=== PATIENT | female | born 1985 | race Caucasian/White ===

== ENCOUNTER 2021-12-16 19:44 | Emergency (ER) | payer BC, SELFPAY ==
--- NOTE | ~2021-12-16 | CT_ITS ---
EXAMINATION: CT BRAIN W/O DATE: 12/16/2021 20:46 INDICATION: Worsening headaches TECHNIQUE: Computed tomography (CT) of the head was performed without intravenous contrast. The dose- length product was 605.33 mGy-cm. Automated exposure control and iterative reconstruction technique w ere employed. COMPARISON: No prior studies for comparison. FINDINGS: Normal brain parenchymal volume for age. Normal del rosario-white differentiation. No acute intrac ranial hemorrhage, infarction, mass or mass effect. No ventriculomegaly or midline shift. Midline sagittal images demonstrate a normal corpus callosum, c raniovertebral junction and sella turcica. Basilar cisterns are patent. Prominent cisterna magna. Paranasal sinuses and mastoids are pneumatized. No depressed skull fractures. IMPRESSION: 1. No acute intracranial abnormality. Reviewed, dictated and finalized at location A.
[2021-12-16 19:46] VITALS: BP 145/92; PULSE 105; RESP 14; TEMP 36.6; O2SAT 98
--- NOTE | 2021-12-16 20:20 | ED.HA ---
HPI - Headache General Chief Complaint: Headache Stated Complaint: headache x 2 months Time Seen by Provider: 12/16/21 20:00 Source: patient Mode of arrival: ambulatory Limitations: no limitations History of Present Illness HPI Narrative: This is a 36-year-old female that presents to the emergency department for headaches worsening over the last month. Reports longstanding history of headaches. Reports they have gotten worse over the last month. She has been taking ibuprofen with little relief. She has never seen a neurologist for her headaches. Denies fever, vomiting, or focal numbness, or weakness. Related Data Allergies Allergy/AdvReac Type Severity Reaction Status Date / Time No Known Allergies Allergy Unknown Verified 04/08/08 15:51 Review of Systems Review of Systems: CONSTITUTIONAL: Denies fever EYES: Denies visual changes GASTROINTESTINAL: Denies vomiting NEUROLOGIC: Reports headache. Denies numbness, or weakness. All systems reviewed & are unremarkable except as noted in HPI and below PMFSH Past Medical History Medical History (Updated 12/16/21 @ 21:46 by Beba Glasgow PA-C) No active medical problems Social History Social History (Updated 12/16/21 @ 20:23 by Beba Glasgow PA-C) Smoking status: Never smoker Substance use: never Exam Narrative: GENERAL: Well-appearing, well-nourished, and in no acute distress. HEAD: Normocephalic, atraumatic. EYES: PERRLA and EOMI. ENT: Nares clear, no rhinorrhea or epistaxis. Mucous membranes moist. Oropharynx without tonsillar hypertrophy exudate or other lesions. Bilateral TMs pearly del rosario non-bulging NECK: Supple. No adenopathy or masses. CHEST: Clear to auscultation. No respiratory distress. No wheezes rales or rhonchi HEART: Regular rate and rhythm. No murmur heard. Normal peripheral pulses. EXTREMITIES: Normal range of motion. No edema. Strength equal in bilateral upper and lower extremities (5/5) SKIN: Warm, dry, no rash. NEURO: No focal deficits. Alert and oriented x3. Cranial nerves II through XII grossly intact PSYCH: Normal mood and affect Course Vital Signs Vital signs: Vital Signs Temperature 97.9 F 12/16/21 19:46 Pulse Rate 105 H 12/16/21 19:46 Respiratory Rate 14 12/16/21 19:46 Blood Pressure 145/92 H 12/16/21 19:46 Pulse Oximetry 98 12/16/21 19:46 Oxygen Delivery Room Air 12/16/21 19:46 Temperature 97.9 F 12/16/21 19:46 Pulse Rate 105 H 12/16/21 19:46 Respiratory Rate 14 12/16/21 19:46 Blood Pressure 145/92 H 12/16/21 19:46 Pulse Oximetry 98 12/16/21 19:46 Oxygen Delivery Room Air 12/16/21 19:46 MDM - Headache MDM Narrative Medical decision making narrative: Patient presents to the ER for worsening headaches noted over the last month. She is afebrile and nontoxic appearing. She is neurologically intact. CT scan of the brain without concerning findings. Patient reports relief with migraine cocktail. She is stable and felt appropriate for further outpatient evaluation. She was given warnings to return to the ER Imaging Data Radiologist's impression: ITS Impressions Head CT 12/16/21 20:57 IMPRESSION: 1. No acute intracranial abnormality. Critical Care Time Critical Care Time Critical Care Time: No Discharge Plan Discharge Clinical Impression: Headache Qualifiers: Headache type: unspecified Headache chronicity pattern: chronic headache Intractability: not intractable Qualified Code(s): R51.9 - Headache, unspecified Patient Disposition: Home, Self-Care Condition: Stable Instructions: Acute Headache (ED) Additional Instructions: Return to the ER if you experience fever, stiff neck, vomiting, sudden onset numbness or weakness, or any other symptoms that are concerning to you Rest. Remain well hydrated. Over the counter pain medication as needed Follow up with neurology Follow-up/Referrals: Chucho Mujica MD [Physician] - 1 Week PHYSICIAN,EYELET OPERATOR
[2021-12-16] MEDS: SODIUM CHLORIDE 0.9% IV 1,000 ML 999 ML IV CONT (20:31)
[2021-12-16] MEDS: METOCLOPRAMIDE HCL INJ 10 MG/2 ML VIAL IV PUSH (20:33)
[2021-12-16] MEDS: diphenhydrAMINE HCl INJ 50 MG/ML VIAL 25 MG IV PUSH (20:35)
[2021-12-16 22:01] VITALS: BP 145/67; PULSE 88; RESP 18; O2SAT 98
== END 2021-12-16 22:02 | disposition home or self-care (01) ==
PROVIDERS: Emergency Provider Emergency Medicine
DX: R51.9 Headache, unspecified (principal)
CPT/HCPCS: 70450; 96361; 96374; 96375; 99284; J0131; J1200; J2765; J7030

== ENCOUNTER 2022-02-16 01:08 | Emergency (ER) | payer OTHER, BC, SELFPAY ==
[2022-02-16 01:10] VITALS: BP 160/97; PULSE 94; RESP 14; TEMP 36.2; O2SAT 100
[2022-02-16 01:32] VITALS: O2SAT 100
[2022-02-16 02:57] LABS: SARS-CoV-2 RNA PCR Positive
--- NOTE | 2022-02-16 03:54 | ED.GENADULT ---
HPI - General Adult General Chief complaint: Upper Respiratory Infection Stated complaint: shortness of breath with cough and congestion Time Seen by Provider: 02/16/22 02:04 History of Present Illness HPI narrative: This is a 36-year-old woman presenting to ED with chief complaint of URI symptoms x4 days. Symptoms include cough, sneezing, runny nose. Patient denies nausea vomiting or diarrhea. She denies chest pain, shortness of breath, abdominal pain, GI or symptoms. Patient is vaccinated against COVID. Patient has has sick contacts at home. Related Data Allergies Allergy/AdvReac Type Severity Reaction Status Date / Time No Known Allergies Allergy Unknown Verified 02/16/22 01:39 Review of Systems Review of Systems: CONSTITUTIONAL: Denies night sweats. EYES: No eye pain ENT: Denies rhinorrhea CARDIOVASCULAR: Denies palpitations RESPIRATORY: Denies hemoptysis GASTROINTESTINAL: Denies hematemesis GENITOURINARY: Denies hematuria. SKIN: Denies rash MUSCULOSKELETAL: Denies myalgia. NEUROLOGIC: Denies weakness. PSYCHIATRIC: Denies delusions PMFSH Past Medical History Medical History No active medical problems Social History Social History Smoking status: Never smoker Substance use: never Exam Narrative: APPEARANCE: No apparent distress. Head atraumatic. EYES: PERRLA/EOMI, NOSE: Normal no drainage NECK: Supple, Trachea midline RESPIRATORY: CTAB, No increased work of breathing. CARDIOVASCULAR: S1S2 appreciated ABDOMINAL: Soft, nontender, nondistended, MUSCULOSKELETAl: No obvious deformities NEURO: Alert. Moving 4/4 extremities SKIN:: Warm, dry. Normal color PSYCHIATRIC: Normal affect Course Vital Signs Vital signs: Vital Signs Temperature 97.2 F L 02/16/22 01:10 Pulse Rate 94 02/16/22 01:10 Respiratory Rate 14 02/16/22 01:10 Blood Pressure 160/97 H 02/16/22 01:10 Pulse Oximetry 100 02/16/22 01:10 Oxygen Delivery Room Air 02/16/22 01:10 Temperature 97.2 F L 02/16/22 01:10 Pulse Rate 94 02/16/22 01:10 Respiratory Rate 14 02/16/22 01:10 Blood Pressure 160/97 H 02/16/22 01:10 Pulse Oximetry 100 02/16/22 01:32 Oxygen Delivery Room Air 02/16/22 01:32 Medical Decision Making MDM Narrative Medical decision making narrative: Patient presents to the ED with URI symptoms x4 days. She is positive for COVID. She is young without comorbidities and is vaccinated. She is considered low risk. She is well appearing with stable vital signs now requiring supplemental oxygenShe will be discharged home with prescriptions to self isolate until asymptomatic. Vital Signs Vital Signs: Vital Signs Temperature 97.2 F L 02/16/22 01:10 Pulse Rate 94 02/16/22 01:10 Respiratory Rate 14 02/16/22 01:10 Blood Pressure 160/97 H 02/16/22 01:10 Pulse Oximetry 100 02/16/22 01:10 Oxygen Delivery Room Air 02/16/22 01:10 Temperature 97.2 F L 02/16/22 01:10 Pulse Rate 94 02/16/22 01:10 Respiratory Rate 14 02/16/22 01:10 Blood Pressure 160/97 H 02/16/22 01:10 Pulse Oximetry 100 02/16/22 01:32 Oxygen Delivery Room Air 02/16/22 01:32 Lab Data Labs: Lab Results 02/16/22 Range/Units 02:14 SARS-CoV-2 RNA (RT-PCR) Positive A Discharge Plan Discharge Clinical Impression: COVID, Acute viral syndrome Patient Disposition: Home, Self-Care Condition: Stable Instructions: Antibiotic Form, COVID-19 (Coronavirus Disease 2019) (ED) Additional Instructions: Please self isolate until you are asymptomatic. Please return emergency department if you develop shortness of breath earlier condition is worsening please follow the primary care physician in 3-5 days. He can take Motrin, Tylenol and Robitussin for symptom control. Prescriptions: New ibuprofen 800 mg tablet 800 mg PO TID PRN (Reason: pain)
== END 2022-02-16 04:10 | disposition home or self-care (01) ==
PROVIDERS: Physician Assistant; Emergency Provider Emergency Medicine
DX: U07.1 COVID-19 (principal)
CPT/HCPCS: 99283; C9803; U0003; U0005

== ENCOUNTER 2022-04-30 00:11 | Emergency (ER) | payer OTHER, BC, SELFPAY ==
[2022-04-30 00:15] VITALS: BP 142/98; PULSE 104; RESP 18; TEMP 36.1; O2SAT 99
--- NOTE | 2022-04-30 02:21 | ED.GENADULT ---
HPI - General Adult General Chief complaint: Unspecified Stated complaint: blue fingers Time Seen by Provider: 04/30/22 01:23 Source: patient Mode of arrival: ambulatory Limitations: no limitations History of Present Illness HPI narrative: Patient is a 36 y/o female who presents to the ED with c/o discoloration to fingers. Patient reports having intermittent blue discoloration to her fingers bilaterally for the past several weeks. She states it seems to be worse at the end of the day. She denies any temperature changes, pain, numbness, tingling, swelling, white discoloration, other areas of discoloration, chest pain, shortness of breath. No injury. Related Data Allergies Allergy/AdvReac Type Severity Reaction Status Date / Time No Known Allergies Allergy Unknown Verified 02/16/22 01:39 Review of Systems Review of Systems: CONSTITUTIONAL: Denies fever, chills, or sweats. CARDIAC: Denies chest pain, BLE pain or edema. RESPIRATORY: Denies dyspnea. SKIN: Reports blue discoloration to fingers. Denies white discoloration. MUSCULOSKELETAL: Denies pain to fingers. NEUROLOGIC: Denies tingling, numbness, or weakness. All systems reviewed & are unremarkable except as noted in HPI and below PMFSH Past Medical History Medical History No active medical problems Surgical History Surgical History (Updated 04/30/22 @ 03:01 by Juli Alvarado PA-C) No pertinent past surgical history Social History Social History Smoking status: Never smoker Substance use: never Exam Narrative: GENERAL: Well appearing, obese, non-toxic, in no acute distress. HEAD: Normocephalic, atraumatic. NECK: Supple. No adenopathy, no masses. RESPIRATORY: Airway patent, respirations nonlabored. Clear to auscultation bilaterally, no rales, rhonchi, wheezing. CARDIOVASCULAR: Regular rate and rhythm without murmurs, rubs, or gallops. Radial pulses 2+ and equal bilaterally. MUSCULOSKELETAL: Moves all extremities. Strength/ROM intact without gross deformities. SKIN: Warm, dry. No rashes. No temperature changes, cold or hot, noted to the fingers. Very slight blue discoloration noted to hands at certain angles. Good capillary refill to all fingers, equal on both hands. Portable pulse oximeter utilized on all fingers, no oxygenation less than 94%. Sensation intact to all fingers. No blue discoloration to toes bilaterally. NEURO: A&O X3. Speech clear. Cranial nerves II-XII grossly intact. Steady gait. No ataxic movements. PSYCHIATRIC: Appropriate mood and affect. Normal interaction. Course Vital Signs Vital signs: Vital Signs Temperature 97.0 F L 04/30/22 00:15 Pulse Rate 104 H 04/30/22 00:15 Respiratory Rate 18 04/30/22 00:15 Blood Pressure 142/98 H 04/30/22 00:15 Pulse Oximetry 99 04/30/22 00:15 Oxygen Delivery Room Air 04/30/22 00:15 Temperature 97.0 F L 04/30/22 00:15 Pulse Rate 104 H 04/30/22 00:15 Respiratory Rate 18 04/30/22 00:15 Blood Pressure 142/98 H 04/30/22 00:15 Pulse Oximetry 99 04/30/22 00:15 Oxygen Delivery Room Air 04/30/22 00:15 Medical Decision Making MDM Narrative Medical decision making narrative: Patient presented to ED with report of several week history of intermittent blue discoloration to fingers. Patient denies any other symptoms associated, no pain, numbness, tingling, swelling. I did appreciate a slight blue tint to patient's hands when examined from different angles. I used a alcohol prep pad and was able to remove some sort of blue dye/ink with the alcohol pad. I do believe this may be related to patient's new pair of blue jeans that she presented to the ED in. At times, I could still appreciate a slight blue tint, could be very mild Raynaud's, but again no other sx's, no precipitating factors. Patient has good capillary refill in all fingers. No temperatu
== END 2022-04-30 03:04 | disposition home or self-care (01) ==
PROVIDERS: Emergency Provider Physician Assistant
DX: L81.9 Disorder of pigmentation, unspecified (principal)
CPT/HCPCS: 99281

== ENCOUNTER 2022-08-04 14:12 | Emergency (ER) | payer OTHER, BC, SELFPAY ==
--- NOTE | ~2022-08-04 | XR_ITS ---
EXAMINATION: XR ankle RT min 3V INDICATION: Right ankle pain TECHNIQUE: Four views of the right ankle are obtained. COMPARISON: 11/25/2011 FINDINGS: There are changes of plate and screw fixation of the distal fibula as well as distal tibial /fibular fusion. Bone alignment is normal. No acute fracture is identified. There is mild osteoarthri tis. IMPRESSION: 1. Postsurgical changes and mild osteoarthritis without acute osseous abnormality identified. Reviewed, dictated and finalized at location F. BOND AGENT IMPRESSION: 1. Postsurgical changes and mild osteoarthritis without acute osseous abnormali ty identified.
[2022-08-04 14:45] VITALS: BP 128/75; PULSE 92; RESP 16; TEMP 36.3; O2SAT 100
--- NOTE | 2022-08-04 16:11 | ED.LOWEXIN ---
HPI - Extremity Injury (Lower) General Chief Complaint: Extremity Injury, Lower Stated Complaint: R ANKLE INJURY Time Seen by Provider: 08/04/22 15:58 Source: patient Mode of arrival: ambulatory Limitations: no limitations History of Present Illness HPI Narrative: 37-year-old female presents today status post fall about 1 week ago. Patient with concerns of continued right ankle pain. Patient states pain is currently tolerable. Patient states pain yesterday was not tolerable and Tylenol did relieve it. Patient has a history of having surgery to the right ankle previously. Patient is able to ambulate but states that the pain is most when she does put a large amount of pressure on that right ankle. Small amount of bruising noted to right ankle but currently is light green/yellow in color. Unable to tell if any swelling is present. Patient states that she does not think that the ankle is swollen. MD complaint: ankle injury (Right ankle) Related Data Allergies Allergy/AdvReac Type Severity Reaction Status Date / Time No Known Allergies Allergy Unknown Verified 02/16/22 01:39 Review of Systems Review of Systems: CONSTITUTIONAL: Denies fever, chills, or sweats. EYES: Denies visual changes, redness, or discharge. ENT: Denies rhinorrhea, congestion, sore throat, or otalgia. CARDIOVASCULAR: Denies chest pain, palpitations, or edema. RESPIRATORY: Denies cough or dyspnea. GASTROINTESTINAL: Denies abdominal pain, nausea, vomiting, or diarrhea. GENITOURINARY: Denies dysuria or hematuria. SKIN: Denies rash or itching. MUSCULOSKELETAL: Right ankle pain status post fall. Denies back pain or myalgia. NEUROLOGIC: Denies headache, numbness, dizziness, or weakness. PSYCHIATRIC: Denies anxiety or depression. PMFSH Past Medical History Medical History No active medical problems Surgical History Surgical History (Updated 08/04/22 @ 16:16 by Sofia Humphreys APRN) History of ankle surgery No pertinent past surgical history Social History Social History Smoking status: Never smoker Substance use: never Exam Narrative: GENERAL: Well-appearing, well-nourished, and in no acute distress. HEAD: Normocephalic, atraumatic. EYES: PERRLA and EOMI. CHEST: Clear to auscultation. No respiratory distress. No wheezes rales or rhonchi HEART: Regular rate and rhythm. No murmur heard. Normal peripheral pulses. EXTREMITIES: Normal range of motion. No edema. Yellow bruising noted to right ankle. No tenderness on palpation. Full range of motion noted. SKIN: Warm, dry, no rash. NEURO: No focal deficits. Alert and oriented x3. PSYCH: Normal mood and affect. Course Vital Signs Vital signs: Vital Signs Temperature 97.4 F L 08/04/22 14:45 Pulse Rate 92 08/04/22 14:45 Respiratory Rate 16 08/04/22 14:45 Blood Pressure 128/75 08/04/22 14:45 Pulse Oximetry 100 08/04/22 14:45 Temperature 97.4 F L 08/04/22 14:45 Pulse Rate 92 08/04/22 14:45 Respiratory Rate 16 08/04/22 14:45 Blood Pressure 128/75 08/04/22 14:45 Pulse Oximetry 100 08/04/22 14:45 MDM - Extremity Injury (Lower) MDM Narrative Medical decision making narrative: 37-year-old female HPI as noted. Differentials noted as below. X-ray negative for acute fracture. Will treat for ankle sprain. Differential Diagnosis Differential diagnosis: Likely ankle sprain and strain, fracture of femur and ankle fracture Imaging Data Radiologist's impression: Impressions Ankle X-Ray 08/04/22 15:47 IMPRESSION: 1. Postsurgical changes and mild osteoarthritis without acute osseous abnormality identified. Discharge Plan Discharge Clinical Impression: Ankle sprain and strain, Acute right ankle pain Patient Disposition: Home, Self-Care Condition: Stable Instructions: Antibiotic Form Additional Instructions: Sagar wrap as n
== END 2022-08-04 16:43 | disposition home or self-care (01) ==
LOC: ANHED 16:35
PROVIDERS: Emergency Provider Nurse Practitioner Family
DX: S93.401A Sprain of unspecified ligament of right ankle, initial encounter (principal); X58.XXXA Exposure to other specified factors, initial encounter
CPT/HCPCS: 73610; 99283

== ENCOUNTER 2023-11-18 17:13 | Emergency (ER) | payer OTHER, SELFPAY ==
--- NOTE | ~2023-11-18 | XR_ITS ---
XR knee LT min 4V Ordering provider: Beba Glasgow PA-C History: . left knee pain x 2 weeks, no trauma . Comparison: None. FINDINGS: BONES: No acute fracture or dislocation. JOINT SPACES: Normal. SOFT TISSUES: Normal. IMPRESSION: No acute osseous abnormality left knee. Consider MRI knee if there is concern for soft tissue internal derangement. Reviewed, dictated and finalized at location A.
[2023-11-18 17:15] VITALS: BP 137/98; PULSE 97; RESP 20; TEMP 36.9; O2SAT 99
--- NOTE | 2023-11-18 18:59 | ED.EXTPRO ---
HPI - Extremity Problem General Chief complaint: Extremity Problem,Nontraumatic Stated complaint: L knee pain Time Seen by Provider: 11/18/23 18:03 Source: patient Mode of arrival: ambulatory Limitations: no limitations History of Present Illness HPI Narrative: This is a 38-year-old female that presents to the emergency department for left knee pain. Ongoing over the last couple of weeks. Reports the pain is constant in nature. Worse with weight-bearing. She has been taking ibuprofen for pain. No known injuries. Reports the pain has been radiating into her calf and lower leg. Denies fevers, erythema, edema, decreased range of motion, or numbness. Related Data Allergies Allergy/AdvReac Type Severity Reaction Status Date / Time No Known Allergies Allergy Unknown Verified 11/18/23 18:02 Review of Systems Review of Systems: CONSTITUTIONAL: Denies fever SKIN: Denies rash MUSCULOSKELETAL: Reports joint pain, and myalgia. NEUROLOGIC: Denies numbness, or weakness. All systems reviewed & are unremarkable except as noted in HPI and below PMFSH Past Medical History Medical History No active medical problems Surgical History Surgical History (Updated 08/04/22 @ 16:16 by Sofia Humphreys APRN) History of ankle surgery No pertinent past surgical history Social History Social History Smoking status: Never smoker Substance use: never Exam Narrative: GENERAL: Well-appearing, well-nourished, and in no acute distress. HEAD: Normocephalic, atraumatic. EYES: EOMI CHEST: No respiratory distress. HEART: Regular rate EXTREMITIES: Normal range of motion. No edema or erythema. Normal DP pulse. Normal sensation SKIN: Warm, dry, no rash. NEURO: No focal deficits. Alert and oriented x3. PSYCH: Normal mood and affect Course Course Emergency Course: Patient updated on her workup and agrees with plan of care Vital Signs Vital signs: Vital Signs Temperature 98.5 F 11/18/23 17:15 Pulse Rate 97 11/18/23 17:15 Respiratory Rate 20 11/18/23 17:15 Blood Pressure 137/98 H 11/18/23 17:15 Pulse Oximetry 99 11/18/23 17:15 Oxygen Delivery Room Air 11/18/23 17:15 Temperature 98.5 F 11/18/23 17:15 Pulse Rate 82 11/18/23 20:00 Respiratory Rate 17 11/18/23 20:00 Blood Pressure 128/92 H 11/18/23 20:00 Pulse Oximetry 100 11/18/23 20:00 Oxygen Delivery Room Air 11/18/23 17:15 Procedures Orthopedic Splinting/Casting Injury #1: Splinting/Casting Date: 11/18/23 Splinting/Casting Time: 20:13 Side: left Lower Extremity Injury Location: knee Lower Extremity Immobilizer: Sagar wrap Pre-Procedure Neuro Vascular Exam: normal Post-Procedure Neuro Vascular Exam: normal Other Orthopedic Equipment: crutches MDM - Extremity (Nontraumatic) MDM Narrative Medical decision making narrative: Patient presents to the emergency department for left knee and lower extremity pain. Ongoing over the last week. No known injuries. She is neurovascularly intact. No notable erythema or edema of the knee. She is afebrile and nontoxic appearing. Her vitals are stable. CBC without leukocytosis. Metabolic panel without concerning findings. D-dimer is not elevated. Left knee x-ray is without acute osseous abnormalities. Patient updated on her workup. Placed in an sagar wrap and given crutches. She will be given follow-up with Orthopedics. She was given warnings to return to the ER Differential Diagnosis Differential diagnosis: Likely deep vein thrombosis of lower extremity and other (internal derangement of knee) Lab Data Attestation: I reviewed the patient's lab results. 11/18/23 19:21 11/18/23 19:21 Labs: Lab Results 11/18/23 Range/Units 19:21 WBC 8.6 (4.5-10.0) K/mm3 RBC 4.41 (4.2-5.4) M/mm3 Hgb
--- NOTE | 2023-11-18 19:07 | PC.NURSE ---
Assumed care of patient at this time.
[2023-11-18] MEDS: KETOROLAC 30 MG/ML VIAL (*BKC) IM (19:17)
[2023-11-18 19:27] LABS: Basophils Percent Auto 0.3 % (0.2-1.2); Eosinophils Absolute Auto 0.1 K/mm3 (0-0.3); Eosinophils Percent Auto 1.3 % (0-4.4); Hematocrit 36.8 % (37.0-47.0); Hemoglobin 11.7 g/dL (12.0-15.0); Immature Granulocyte Absolute 0.03 K/mm3 (0.00-0.031); Immature Granulocyte Percent A 0.3 % (0-0.5); Lymphocytes Absolute Auto 1.99 K/mm3 (0.9-3.2); Lymphocytes Percent Auto 23.1 % (18.3-44.2); Mean Corpuscular HGB Conc 31.8 g/dl (32-36); Mean Corpuscular Hemoglobin 26.5 pg (26-34); Mean Corpuscular Volume 83.4 fl (80-100); Monocytes Absolute Auto 0.5 K/mm3 (0.1-0.6); Monocytes Percent Auto 6.1 % (2.6-8.5); Neutrophils Absolute Auto 5.9 K/mm3 (1.3-6.7); Neutrophils Percent Auto 68.9 % (45.5-73.1); Platelet Count Result 256 k/mm3 (150-375); Red Blood Count 4.41 M/mm3 (4.2-5.4); Red Cell Distribution Width 13.6 % (11.5-14.5); White Blood Count 8.6 K/mm3 (4.5-10.0)
[2023-11-18 19:41] LABS: Anion Gap 9 mmol/L (4-12); Blood Urea Nitrogen 13 mg/dL (7-17); Carbon Dioxide 23 mmol/L (22-30); Chloride 105 mmol/L (98-107); Estimated CRCL calculation 113 ml/min; Estimated Glomerular Filt Rate > 60; Glucose 95 mg/dL (65-110); Sodium 137 mmol/L (137-145)
[2023-11-18 19:44] LABS: Prothrombin Time 13.5 Seconds (11.1-14.7)
[2023-11-18 19:45] LABS: Partial Thromboplastin Time 26.9 Seconds (22.3-36.8)
[2023-11-18 19:50] LABS: D Dimer 0.35 ug/mL (<0.48)
[2023-11-18 20:00] VITALS: BP 128/92; PULSE 82; RESP 17; O2SAT 100
== END 2023-11-18 20:23 | disposition home or self-care (01) ==
PROVIDERS: Emergency Provider Physician Assistant
DX: M25.562 Pain in left knee (principal)
CPT/HCPCS: 36415; 73564; 80048; 85025; 85380; 85610; 85730; 96372; 99283; J1885

== ENCOUNTER 2024-02-09 08:43 | Outpatient (CLI) | payer OTHER, SELFPAY ==
--- NOTE | ~2024-02-09 | MR_ITS ---
MRI of the left knee Clinical history: Pain Technique: Coronal proton density and proton density-weighted images, sagittal proton-density and T2 fat-sat images, and axial proton-density fat-saturated images were acquired. Findings: There is mucoid degenerative change of the ACL, which is hyperintense, but otherwise intact . Posterior cruciate ligament is intact. Medial collateral ligament and the lateral collateral ligame nt complex are intact. Popliteus tendon is intact. Medial and lateral menisci are intact, without evidence of tear. Articular cartilage is well preserved throughout the knee. Bone marrow signals are unremarkable. Extensor mechanism is intact. No joint effusion or Mckeon's cyst. Impression: Mucoid degenerative change of the ACL, otherwise no significant abnormality seen. Reviewed, dictated and finalized at location . Impression: Mucoid degenerative change of the ACL, otherwise no significant abnormality see n.
== END 2024-02-09 08:44 | disposition home or self-care (01) ==
PROVIDERS: PCP Nurse Practitioner Family; Visit Provider Nurse Practitioner Family
DX: M25.562 Pain in left knee (principal)
CPT/HCPCS: 73721

== ENCOUNTER 2024-04-03 09:49 | Emergency (ER) | payer OTHER, SELFPAY ==
[2024-04-03 09:51] VITALS: BP 133/93; PULSE 90; RESP 18; TEMP 36.4; O2SAT 98
--- NOTE | 2024-04-03 09:59 | PC.NURSE ---
Strep and COVID/FLU/RSV swab sent to lab.
[2024-04-03 10:27] LABS: Strep Group A RT-PCR NOT DETECTED (Negative)
[2024-04-03 10:38] LABS: Influenza A QL RT-PCR Negative (Negative); Influenza B QL RT-PCR Negative (Negative); RSV RNA, RT-PCR Negative (Negative); SARS-CoV-2 RNA PCR Negative (Negative)
--- NOTE | 2024-04-03 11:51 | ED.URI ---
HPI - URI/Sore Throat General Chief Complaint: Upper Respiratory Infection Stated Complaint: headache, vomiting Time Seen by Provider: 04/03/24 11:50 History of Present Illness HPI Narrative: Patient is a 38-year-old female who presents to the ER with headache, sore throat, nausea vomiting. She reports her symptoms started on Tuesday night. Patient recently had contact with her sister who has been ill with a viral infection. Patient has no medical history pertinent to this ER visit. Related Data Allergies Allergy/AdvReac Type Severity Reaction Status Date / Time No Known Allergies Allergy Unknown Verified 04/03/24 09:53 Review of Systems Review of Systems: All systems reviewed & are unremarkable except as noted in HPI and below PMFSH Past Medical History Medical History Anemia Anxiety Depression Lateral meniscus tear Left knee pain Patella-femoral syndrome Surgical History Surgical History History of ankle surgery 2008 - Dr. Oden Family History Family History Unknown Diabetes mellitus Hypertension Social History Social History Smoking status: Never smoker Substance use: never Exam Narrative: GENERAL: Well appearing, well-nourished, non-toxic, in no acute distress. HEAD: Normocephalic, atraumatic. NECK: Supple. No adenopathy, no masses. RESPIRATORY: Airway patent, respirations nonlabored. Clear to auscultation bilaterally, no rales, rhonchi, wheezing. CARDIOVASCULAR: Regular rate and rhythm without murmurs, rubs, or gallops. Peripheral pulses 2+ and equal bilaterally. ABDOMINAL: Soft, nontender, nondistended, no hepatosplenomegaly. Normoactive BS. MUSCULOSKELETAL: Moves all extremities. Strength/ROM intact without gross deformities. SKIN: Warm, dry, normal color. No rashes. NEURO: A&O X3. Speech clear. Cranial nerves II-XII grossly intact. Steady gait. No ataxic movements. PSYCHIATRIC: Appropriate mood and affect. Normal interaction. Course Vital Signs Vital signs: Vital Signs Temperature 36.4 C L 04/03/24 09:51 Pulse Rate 90 04/03/24 09:51 Respiratory Rate 18 04/03/24 09:51 Blood Pressure 133/93 H 04/03/24 09:51 Pulse Oximetry 98 04/03/24 09:51 Oxygen Delivery Room Air 04/03/24 09:51 Temperature 36.4 C L 04/03/24 09:51 Pulse Rate 90 04/03/24 09:51 Respiratory Rate 18 04/03/24 09:51 Blood Pressure 133/93 H 04/03/24 09:51 Pulse Oximetry 98 04/03/24 09:51 Oxygen Delivery Room Air 04/03/24 09:51 MDM - URI/Sore Throat MDM Narrative Medical decision making narrative: Patient's COVID/RSV / strep swabs were all negative. Results shared with patient. Advised to rest, push fluids, return to the ER with any worsening symptoms. Patient verbalizes agreement with plan. Differential Diagnosis Differential diagnosis: Likely upper respiratory infection, viral infection, bronchitis and pharyngitis Lab Data Attestation: I reviewed the patient's lab results. Labs: Lab Results 04/03/24 04/03/24 Range/Units 09:57 09:58 Influenza A (RT-PCR) Negative (Negative) Influenza B (RT-PCR) Negative (Negative) RSV (RT-PCR) Negative (Negative) SARS-CoV-2 RNA (RT-PCR) Negative (Negative) Group A Strep (PCR) Not detected (Negative) Discharge Plan Discharge Clinical Impression: Upper respiratory infection, viral Patient Disposition: Home, Self-Care Condition: Stable Instructions: Antibiotic Form, Viral Syndrome (ED) Additional Instructions: Please return to ER with worsening symptoms. He may take Tylenol and or ibuprofen to treat symptoms. Please follow-up with your primary care provider. Try to rest and push fluids over the next couple of days. Prescriptions: No Action ibuprofen 800 mg tablet 800 mg PO TID PRN (Reason: pain) 7 Days Qty: 21 0RF acetaminophen 500 mg tablet 1,000 mg PO TID PRN (Reason: alexandre) 7 Days Qty: 42 0RF cyclobenzaprine 10 mg tablet 10 mg PO TID PRN (Reason: muscle spasm) Qty: 14 0RF meloxicam 15 mg tablet 15 mg PO DAILY Qty: 30 0RF Follow-up/Referrals: PHYSICIAN NOT ON STAFF,NONSTAFF [Primary Care Provider] - Stand Alone Forms: Work/School Release IP Time of Disposition: 11:54
[2024-04-03 12:15] VITALS: BP 125/85; PULSE 92; RESP 15; TEMP 36.4; O2SAT 99
[2024-04-03 12:21] VITALS: O2SAT 99
== END 2024-04-03 12:23 | disposition home or self-care (01) ==
LOC: ANHED 11:57
PROVIDERS: Family Medicine; Emergency Provider Registered Nurse
DX: J06.9 Acute upper respiratory infection, unspecified (principal); Z20.822 Contact with and (suspected) exposure to COVID-19; Z86.2 Personal history of diseases of the blood and blood-forming organs and certain disorders involving the immune mechanism
CPT/HCPCS: 87637; 87651; 99283

== ENCOUNTER 2024-07-06 13:10 | Emergency (ER) | payer MEDICAID, SELFPAY ==
--- NOTE | ~2024-07-06 | XR_ITS ---
EXAMINATION: XR knee LT min 4V DATE: 07/06/2024 15:39 INDICATION: Fall. Left knee pain. TECHNIQUE: 4 views of left knee were obtained. COMPARISON: Left knee radiograph 11/18/2023 FINDINGS: Alignment is normal. No fracture. There is mild osteoarthritis of medial and patellofemoral compartments. No knee joint effusion. IMPRESSION: 1. Mild left knee osteoarthritis. Reviewed, dictated and finalized at location A. [facility]
[2024-07-06 13:11] VITALS: BP 148/95; PULSE 98; RESP 16; TEMP 36.6; O2SAT 100
--- OUTSIDE RECORDS SUMMARY | 2024-07-06 13:12 | XMS_ITS | Encounter Summary ---
Author Organization [facility] Address [address] [place] [address] Care Team Providers Care Handbag Framer Name Role Phone Patricia Anderson MD Primary Care Provider [phone] Encounter Details Date Type Department Care Team (Late st Contact Info) Description 07/04/2024 External Device Data [facility] Provider, Abstract NO ADDRESS ON FILE Social History Tobacco Use Types Packs/Day Years Used Date Smoking Tobacco: Never Smokeless Tobacco: Never Alcohol Use Standard Drinks/Week Comments Yes 0 (1 standard drink = 0.6 oz pur e alcohol) a couple of drinks a month Comments No Sex and Gender Information Value Date Recorded Sex Assigned at Not on file Legal Sex Female 11:54 AM CDT Gender Identity Not on file Sexual Orientation Not on file documented as of this encounter Plan of Treatment Not on file documented as of this encounter Visit Diagnoses Not on filedocumented in this encounter Additional Health Concerns Assessment Noted Time PHQ-9 Depression Total Score: 5 03/27/20 24 1:00 PM CDT documented as of this encounter Care Teams Handbag Framer Relationship Specialty Start Date End Date Patricia Anderson MD [address] [place] [phone] PCP - General Internal Medicine 12/27/23 documented as of this encounter
--- OUTSIDE RECORDS SUMMARY | 2024-07-06 13:12 | XMS_ITS | Continuity of Care Document ---
Author Organization [facility] Address [address] [place] [address] [place] [address] Phone Care Team Providers Care Inspector Weights And Measures Name Role Phone Blayne Ruby MD Unavailable Unavailable Advance Directives Directive Yes / No Effective Date File Name No Information Encounters Encounter Description Practice Location Reason(s) For Visit Diagnoses Date Provider Providers Copied on Encounter [facility], [address] [employer] [facility] [place], [id number], [place] tel:[phone] [facility] No Information Tung Cisneros. [address] [facility] [place], [id number], [place]. tel:[phone] Family History Family Member Type Diagnosis Age At Onset No Information Payers Payer name Insurance type Covered republican ID Authoriza tion(s) No Information Social History Type Description Quantity Date Captured Comments Sex Female Smoking Status No Information Chief Complaint And Reason For Visit No Information Plan Of Treatment Date Type Action Status No Information History Of Present Illness Encounter Date Complaint History Of Prese nt Illness No Information Instructions Date Instruction Additional Infor mation No Information Assessments Type Assessment Date No Information
--- OUTSIDE RECORDS SUMMARY | 2024-07-06 13:12 | XMS_ITS | Clinical Summary ---
Author Organization [facility] [place] Address [address] [place] [phone] Care Team Providers Care Clinical Assessment Manager Name Role Phone Patricia Anderson MD Primary Care Provider [phone] Allergies No known active allergies Medications ferrous sulfate (FeosoL) 325 mg (65 mg iron) tabletIndicatio ns:Other iron deficiency anemia Take 1 Tablet (325 mg) by mouth daily. 90 Tablet 1 4 Active DULoxetine (Cymbalta) 60 mg Capsule, Delayed Release(E.C.)In dications:Moder ate episode of recurrent major depressive disorder (CMS/HCC) Take 1 Capsule (60 mg) by mouth daily in the morning. 30 Capsule 4 Active semaglutide, weight loss, (WEGOVY) 0.5 mg/0.5 mL Pen InjectorIndicat ions:Morbid obesity with body mass index (BMI) of 40.0 or higher (CMS/HCC) Inject 0.5 mL (0.5 mg) by subcutaneous injection every 7 days. 2 mL 4 Active Active Problems Problem Noted Date Diagnosed Date Iron deficiency anemia 02/27/2024 Vitamin B 12 deficiency 02/27/2024 Morbid obesity with body mass index (BMI) of 40. 0 or higher 12/01/2022 Current moderate episode of major depressive dis order 12/01/2022 Cystic acne 10/25/2022 Subcutaneous nodule 12/08/2017 Resolved Problems Problem Noted Date Diagnosed Date Resolved Date Ankle pain 10/25/2022 02/27/2024 Urinary tract infectious disease 10/25/2022 02/27/2024 Acute sinusitis 06/16/2016 02/27/2024 Encounters Date Type Department Care Team Description 07/04/2024 External Device Data [facility] Provider, Abstract 06/28/2024 External Device Data [facility] Provider, Abstract from Last 3 Months Immunizations Immunization Administration Dates Next Due INFLUENZA VACCINE QUADRIVALENT 6 MOS UP IM 05/15 INFLUENZA VACCINE QUADRIVALENT 6 MOS UP PF IM Family History Medical History Relation Name Comments Diabetes Father Elliot Merchant Thyroid Disease Mother Relation Name Status Comments Brother Alive Daughter Alive Father Elliot Merchant Alive Mother Alive Sister Alive Social History Tobacco Use Types Packs/Day Years Used Date Smoking Tobacco: Never Smokeless Tobacco: Never Tobacco Cessation:Counseling Given: Not Answered Alcohol Use Standard Drinks/Week Comments Yes 0 (1 standard drink = 0.6 oz pur e alcohol) a couple of drinks a month Comments No Sex and Gender Information Value Date Recorded Sex Assigned at Not on file Legal Sex Female 11:54 AM CDT Gender Identity Not on file Sexual Orientation Not on file Last Filed Vital Signs Vital Sign Reading Time Taken Comments Blood Pressure 110/88 03/27/2024 9:55 AM CDT Pulse 98 03/27/2024 9:55 AM CDT Temperature 36.4 ??C (97.5 ??F) 03/27/2024 9:55 AM CD T Respiratory Rate 17 03/27/2024 9:55 AM CDT Oxygen Saturation 98% 03/27/2024 9:55 AM CDT Inhaled Oxygen Concentration - - Weight 137.1 kg (302 lb 3.2 oz) 03/27/2024 9:55 AM CDT Height 167.6 cm (5' 6 ) 03/27/2024 9:5 5 AM CDT Body Mass Index 48.78 03/27/2024 9:55 AM CDT Plan of Treatment Health Maintenance Due Date Last Done Comments Pre-Diabetes and Diabetes Screening 1986 DTAP/TDAP/TD VACCINES (1 - Tdap) 2005 HEPATITIS B VACCINES (1 of 3 - 19+ 3-dose series) 2005 CERVICAL CANCER SCREENING 2016 INFLUENZA VACCINE (#1) 2024 0, 05/15/2015 HPV VACCINES Aged Out No longer eligi ble based on patient's age to complete this topic PNEUMOCOCCAL VACCINE 0-64 YEARS Aged Out No longer eligible b ased on patient's age to complete this topic Care Teams Clinical Assessment Manager Relationship Specialty Start Date End Date Patricia Anderson MD [address] [place] [phone] PCP - General Internal Medicine 12/27/23
--- OUTSIDE RECORDS SUMMARY | 2024-07-06 13:13 | XMS_ITS | CONTINUITY OF CARE DOCUMENT ---
Author Name lita london Address Unknown Organization [facility] Address [address] [place] [address] Phone [phone] Care Team Providers Care Rn Observation Name Role Phone lita london Unavailable Unavailable INSURANCE PROVIDERS Payer name Policy type / Coverage type [place] red republican ID HEALTHCARE AND FAMILY SERVICES Medicaid 1 [id number]
--- NOTE | 2024-07-06 15:04 | ED_ITS ---
HPI - Extremity Injury (Lower) General Chief Complaint: Extremity Injury, Lower Stated Complaint: left knee pain Time Seen by Provider: 07/06/24 15:05 Focused HPI: This is a 39 year old female that presents to the ER for left knee pain. Reports she slipped and fell on ice. She has not been able to ambulate without pain. Reports some swelling. She did not hit her head or lose consciousness. GENERAL: Well-appearing, well-nourished, and in no acute distress. HEAD: Normocephalic, atraumatic. CHEST: Clear to auscultation. ?No respiratory distress. HEART: Regular rate and rhythm.? NEURO: ?Alert and oriented x3. Patient screened in triage and initial orders placed.? ?Additional care and disposition to be based upon?diagnostic testing and treatment. Related Data Allergies Allergy/AdvReac Type Severity Reaction Status Date / Time No Known Allergies Allergy Unknown Verified 04/03/24 09:53 Review of Systems Review of Systems: CONSTITUTIONAL: Denies fever MUSCULOSKELETAL: Reports joint pain, and myalgia. NEUROLOGIC: Denies numbness, or weakness. All systems reviewed & are unremarkable except as noted in HPI and below PMFSH Past Medical History Medical History Anemia Anxiety Depression Lateral meniscus tear Left knee pain Patella-femoral syndrome Surgical History Surgical History History of ankle surgery 2008 - Dr. Oden Family History Family History Unknown Diabetes mellitus Hypertension Social History Social History Smoking status: Never smoker Substance use: never Exam Narrative: GENERAL: Well-appearing, well-nourished, and in no acute distress. HEAD: Normocephalic, atraumatic. EYES: EOMI. EXTREMITIES: Normal range of motion. No edema or obvious deformity. Normal DP pulse. Normal sensation SKIN: Warm, dry, no rash. NEURO: No focal deficits. Alert and oriented x3. PSYCH: Normal mood and affect Course Course Emergency Course: Patient updated on workup and agrees with plan of care Vital Signs Vital signs: Vital Signs Temperature 97.9 F 07/06/24 13:11 Pulse Rate 98 07/06/24 13:11 Respiratory Rate 16 07/06/24 13:11 Blood Pressure 148/95 H 07/06/24 13:11 Pulse Oximetry 100 07/06/24 13:11 Oxygen Delivery Room Air 07/06/24 13:11 Temperature 97.9 F 07/06/24 13:11 Pulse Rate 98 07/06/24 13:11 Respiratory Rate 16 07/06/24 13:11 Blood Pressure 148/95 H 07/06/24 13:11 Pulse Oximetry 100 07/06/24 13:11 Oxygen Delivery Room Air 07/06/24 13:11 MDM - Extremity Injury (Lower) MDM Narrative Medical decision making narrative: Patient presents to the emergency department for left knee pain after an injury yesterday. She is neurovascularly intact. Left knee x-ray shows mild osteoarthritis. Patient updated on her workup and agrees with plan of care. She is to follow up with Orthopedics. She was given warnings to return to the ER Differential Diagnosis Differential diagnosis: Likely acute internal derangement of knee Imaging Data Radiologist's impression: ITS Impressions Knee X-Ray 07/06/24 16:30 IMPRESSION: 1. Mild left knee osteoarthritis. Critical Care Time Critical Care Time Critical Care Time: No Discharge Plan Discharge Clinical Impression: Left knee sprain Qualifiers: Encounter type: initial encounter Involved ligament of knee: unspecified ligament Qualified Code(s): S83.92XA - Sprain of unspecified site of left knee, initial encounter Patient Disposition: Home, Self-Care Condition: Stable Instructions: Knee Sprain (ED) Additional Instructions: Return to the ER if you experience fever, redness and swelling of your extremity, numbness or any other symptoms that are concerning to you Wear ANNA wrap and use crutches. No weight on the affected leg until able to bear weight without pain. Ice and elevate extremity. Pain medication as needed and directed. Follow up with orthopedics for further care. Patient Language: [place] Prescriptions: No Action ibuprofen 800 mg tablet 800 mg PO TID PRN (Reason: pain) 7 Days Qty: 21 0RF acetaminophen 500 mg tablet 1,000 mg PO TID PRN (Reason: alexandre) 7 Days Qty: 42 0RF cyclobenzaprine 10 mg tablet 10 mg PO TID PRN (Reason: muscle spasm) Qty: 14 0RF meloxicam 15 mg tablet 15 mg PO DAILY Qty: 30 0RF Follow-up/Referrals: Clemente Guerra MD [Physician] - UNKNOWN,DOCTOR [Primary Care Provider] - Stand Alone Forms: Work/School Release IP
--- OUTSIDE RECORDS SUMMARY | 2024-07-06 15:23 | XMS_ITS | CONTINUITY OF CARE DOCUMENT ---
Author Name lita london Address Unknown Organization [facility] Address [address] [place] [address] Phone [phone] Care Team Providers Care Fisher Trawl Line Name Role Phone lita london Unavailable Unavailable INSURANCE PROVIDERS Payer name Policy type / Coverage type [place] red constitution party ID HEALTHCARE AND FAMILY SERVICES Medicaid 1 [id number]
--- OUTSIDE RECORDS SUMMARY | 2024-07-06 15:23 | XMS_ITS | Encounter Summary ---
Author Organization [facility] Address [address] [place] [address] Care Team Providers Care Photoengraving Sketch Maker Name Role Phone Patricia Anderson MD Primary Care Provider [phone] Encounter Details Date Type Department Care Team [...] documented as of this encounter Care Teams Photoengraving Sketch Maker Relationship Specialty Start Date End Date Ptaricia Anderson MD [address] [place] [phone] PCP - General Internal Medicine 12/27/23 documented as of this encounter
--- OUTSIDE RECORDS SUMMARY | 2024-07-06 15:23 | XMS_ITS | Continuity of Care Document ---
Author Organization [facility] Address [address] [place] [address] [place] [address] Phone Care Team Providers Care Junior Mechanical Engineer Name Role Phone Blayne Ruby MD Unavailable Unavailable Advance Directives Directive Yes / No Effective Date File Name No Information Encounters Encounter Description Practice Location Reason(s) For Visit Diagnoses Date Provider Providers Copied on Encounter [facility], [address] [employer] [facility] [facility] [place] [place], [id number], [place] tel:[phone] [facility] No Information Tung Cisneros. [address] [facility] [place], [id number], [place]. tel:[phone] Family History Family Member Type Diagnosis Age At Onset No Information Payers Payer name Insurance type Covered democrat ID Authoriza tion(s) No Information Social History [...]
--- OUTSIDE RECORDS SUMMARY | 2024-07-06 15:23 | XMS_ITS | Clinical Summary ---
Author Organization [facility] [place] Address [address] [place] [phone] Care Team Providers Care Ball Machine Operator Name Role Phone Patricia Anderson MD Primary Care Provider [phone] Allergies No known active allergies Medications ferrous [...] age to complete this topic Care Teams Ball Machine Operator Relationship Specialty Start Date End Date Patricia Anderson MD [address] [place] [phone] PCP - General Internal Medicine 12/27/23
--- NOTE | 2024-07-06 20:32 | PC.NURSE ---
Attempted to discharge patient. Called patient back to triage bay two. No answer.
== END 2024-07-06 22:16 | disposition home or self-care (01) ==
PROVIDERS: Emergency Provider Physician Assistant
DX: S83.92XA Sprain of unspecified site of left knee, initial encounter (principal); Z86.2 Personal history of diseases of the blood and blood-forming organs and certain disorders involving the immune mechanism; M17.12 Unilateral primary osteoarthritis, left knee; W00.0XXA Fall on same level due to ice and snow, initial encounter
CPT/HCPCS: 73564; 99283